=== PATIENT | female | born 1980 | race Hispanic/Latino ===

== ENCOUNTER 2021-04-06 18:51 | Emergency (ER) | payer BC ==
[2021-04-06] MEDS ORDERED: Lidocaine 1% (PF) 30 ML VIAL ONE (21:07)
[2021-04-06] MEDS ORDERED: Sulfameth/Trimethoprim DS 800-160mg TAB ONE (21:36)
== END 2021-04-06 21:32 | disposition home or self-care (01) ==
LOC: NAV ERS 18:51
DX: N75.1 Abscess of Bartholin's gland (principal)
CPT/HCPCS: 56420; 87070; 87076; 87077; 87186; 87205; J2001